=== PATIENT | male | born 1990 | race African-American/Black ===

== ENCOUNTER 2024-09-17 01:21 | Emergency (ER) | payer SELFPAY ==
[2024-09-17 01:30] VITALS: BP 152/118; PULSE 50; RESP 18; TEMP 98; BMI 23.7
[2024-09-17] MEDS ORDERED: ACETAMINOPHEN 325 MG TABLET (FP) ONE (01:44)
[2024-09-17] MEDS: ACETAMINOPHEN 325 MG TABLET (FP) PO ONE (01:49)
== END 2024-09-17 01:54 | disposition home or self-care (01) ==
LOC: JER 01:21
DX: R51.9 Headache, unspecified (principal); R03.0 Elevated blood-pressure reading, without diagnosis of hypertension
CPT/HCPCS: 99283-25